=== PATIENT | male | born 1980 | race African-American/Black ===

== ENCOUNTER 2017-04-26 22:36 | Inpatient (IN) | payer MEDICAID ==
[~2017-04-26] VITALS: Ht 190.5 cm; Wt 175.1 kg
--- NOTE | 2017-04-26 23:08 | NUR ---
Pt to room, changed into gown. Pt c/o severe abd pain since last night. Sts not eating due to increased after eating. Pt denies N/V/D/C. Pt sts he had a normal BM approx "36 hrs" ago. Pt resting in position of comfort for self. Awaiting further eval.
[2017-04-26] MEDS ORDERED: MORPHINE SULFATE 2 MG/1 ML DISP.SYRIN IV ONE (23:30)
[2017-04-26] MEDS ORDERED: ONDANSETRON 4 MG/2 ML VIAL IV ONE (23:30)
[2017-04-26] MEDS ORDERED: IV NORMAL SALINE 1000 ML BAG IV ONE (23:30)
[2017-04-26 23:40] LABS: BASOPHILS # (AUTO) 0.1 K/uL (0.0-8.0); BASOPHILS % (AUTO) 1.2 % (0.0-2.0); EOSINOPHILS # (AUTO) 0.2 K/uL (0.0-0.7); EOSINOPHILS % (AUTO) 2.3 % (0.0-7.0); HEMATOCRIT 42.4 % (40-50); HEMOGLOBIN 14.2 G/DL (14.0-18.0); LYMPHOCYTES # (AUTO) 1.8 K/UL (0.8-4.8); LYMPHOCYTES % (AUTO) 21.6 % (20.5-51.5); MEAN CORPUSCULAR HEMOGLOBIN 27.4 UUG (27.0-31.0); MEAN CORPUSCULAR HGB CONC 34 g/dL (32.0-37.0); MEAN CORPUSCULAR VOLUME 81.7 FL (82.0-92.0); MONOCYTES # (AUTO) 0.4 K/UL (0.1-1.30); MONOCYTES % (AUTO) 4.7 % (0.0-11.0); NEUTROPHILS # (AUTO) 5.9 K/UL (1.8-8.9); NEUTROPHILS % (AUTO) 70.2 % (38.5-71.5); PLATELET COUNT (AUTO) 200 K/UL (150-450); RED BLOOD CELL COUNT(AUTO) 5.19 MIL/UL (4.7-6.1); WHITE BLOOD COUNT (AUTO) 8.4 K/UL (4.0-11.2)
[2017-04-26] MEDS ORDERED: ONDANSETRON 4 MG/2 ML VIAL ONE (23:45)
[2017-04-26] MEDS ORDERED: MORPHINE SULFATE 4 MG/1 ML DISP.SYRIN ONE (23:45)
[2017-04-26 23:50] LABS: *BILIRUBIN,URIN NEGATIVE (NEGATIVE); *BLOOD, URINE NEGATIVE (NEGATIVE); *CLARITY,URINE CLEAR (CLEAR); *COLOR,URINE YELLOW (YELLOW); *KETONES,URINE NEGATIVE (NEGATIVE); *PROTEIN,URINE 1+ (NEGATIVE); *UROBILINOGEN,URINE 0.2 E.U./dl (NORMAL); LEUKOCYTE ESTERASE ,URINE NEGATIVE (NEGATIVE); NITRITE, URINE NEGATIVE (NEGATIVE); UGLUCOSE NEGATIVE (NEGATIVE)
[2017-04-26 23:53] LABS: CREATININE 1.6 mg/dL (0.6-1.3); POTASSIUM 4.2 mmol/L (3.5-5.1)
[2017-04-26 23:59] LABS: BILIRUBIN,DIRECT 0.1 mg/dL (0.0-0.2); BILIRUBIN,TOTAL 0.4 mg/dL (0.2-1.0)
[2017-04-27] VITALS (14 sets, daily range): BP systolic 129–162; BP diastolic 75–108
[2017-04-27 00:09] LABS: BACTERIA,URINE NONE SEEN /HPF (NONE SEEN); RBC,URINE NONE SEEN /HPF (0-3); SQUAMOUS EPITHELIAL CELL,UR FEW /HPF (NONE SEEN); WBC,URINE 0-3 /HPF (0-3)
--- NOTE | 2017-04-27 00:19 | NUR ---
Pt sts no change in pain from previous medication. Dr. Lugo notified, awaiting further orders. Fluid bolus cont infusing freely to gravity
--- NOTE | 2017-04-27 00:27 | NUR ---
Pt medicated for continued pain. Will monitor for effects of medication. Pt awaiting CT
[2017-04-27] MEDS ORDERED: HYDROMORPHONE 1 MG/1 ML DISP.SYRIN IV ONE ×2 (00:30→05:45)
[2017-04-27] MEDS ORDERED: HYDROMORPHONE 2 MG/1 ML DISP.SYRIN ONE ×2 (00:34→05:58)
--- NOTE | 2017-04-27 00:39 | NUR ---
pt to CT via robert
--- NOTE | 2017-04-27 00:55 | NUR ---
Pt returned from CT via gurney. Pt sts pain is improving. Pt resting in position of comfort for self, awaiting results.
[2017-04-27] MEDS ORDERED: PIPERACILLIN SODIUM/TAZOBACTAM 3.375 G in IV DEXTROSE 5% 50 ML IV ONE (01:30)
--- NOTE | 2017-04-27 01:43 | NUR ---
Pt to be admitted to the hospital for appendicitis. Dr. Tesfaye pagehattie for admission. Dr. Lugo aware of pt's blood pressure. Awaiting further orders.
[2017-04-27] MEDS ORDERED: LABETALOL HCL 100 MG/20 ML VIAL IV ONE ×4 (02:00→05:30)
[2017-04-27] MEDS ORDERED: IV 1/2NS 1000 ML 1,000 ML IV PRN (02:01)
--- NOTE | 2017-04-27 02:07 | NUR ---
[place] [facility] [place] FOR LATERAL TRANSFER
--- NOTE | 2017-04-27 02:07 | NUR ---
Pt medicated for elevated bp, will monitor for effects of medication. ABT infusion started, will monitor for any adverse reactions. Pt resting in position of comfort for self.
--- NOTE | 2017-04-27 02:10 | NUR ---
Second attempt by Dr. Lugo to speak with Dr. Tesfaye unsuccessful. Dr. Lugo spoke with KAITY Browning for EPIC
[2017-04-27] MEDS ORDERED: LABETALOL HCL 100 MG/20 ML VIAL ONE ×2 (02:11→10:29)
[2017-04-27] MEDS ORDERED: PIPERACILLIN/TAZOBACTAM/D5W 50 ML IV ONE (02:12)
[2017-04-27] MEDS ORDERED: HYDROMORPHONE 1 MG/1 ML DISP.SYRIN IV PRN (02:15)
[2017-04-27] MEDS ORDERED: ONDANSETRON 4 MG/2 ML VIAL IV PRN ×2 (02:15→07:45)
[2017-04-27] MEDS ORDERED: ACETAMINOPHEN 325 MG TABLET PO PRN (02:15)
--- NOTE | 2017-04-27 02:42 | NUR ---
ABT infusion completed, no adverse reactions noted. Pt has no complaints at this time. Admission pending.
--- NOTE | 2017-04-27 02:43 | NUR ---
Cont. waiting for Dr. Tesfaye to call back after third attempt to reach him.
--- NOTE | 2017-04-27 03:20 | NUR ---
Dr. Lugo notified of pt's continued elevated BP. Received verbal order for labetalol 10mg IVP. Pt to be upgraded from med/surg to tele.
--- NOTE | 2017-04-27 03:30 | NUR ---
UNABLE TO GET IN CONTACT WITH DR LIZBETH RESTREPO. CALLED DR POPE TO HELP REACH SURGEON
--- NOTE | 2017-04-27 04:00 | NUR ---
DR LIZBETH RESTREPO HAS NOT RETURN CALL FOR CONSULT. PLACED A 2ND CALL TO DR POPE [phone] IN ORDER TO HELP REACH SURGEON
--- NOTE | 2017-04-27 04:05 | NUR ---
DR POPE CONTACT WITH DR RICHARDS AT THIS TIME
--- NOTE | 2017-04-27 04:10 | NUR ---
DR POPE UNABLE TO HELP AT THIS TIME TO CONTACT SURGEON DUE TO HIM BEING ON INTERNATIONAL FLIGHT. WAS INSTRUCTED TO CALL [facility] TO HELP CONTACT LIZBETH WILCOX
--- NOTE | 2017-04-27 04:12 | NUR ---
PAGED DR RESTREPO,[facility] [place] EXHANGED [phone] FOR CONSULT.WAITING FOR CALL BACK
[2017-04-27] MEDS ORDERED: hydrALAZINE HCL 20 MG/1 ML VIAL IV ONE ×2 (04:15→05:45)
[2017-04-27] MEDS ORDERED: LORAZEPAM 2 MG/1 ML VIAL IV ONE (04:15)
[2017-04-27] MEDS ORDERED: LORAZEPAM 2 MG/1 ML VIAL ONE (04:28)
--- NOTE | 2017-04-27 04:30 | NUR ---
Pt repositioned for comfort. Dr. Lugo notified of pt's blood pressure remaining elevated. Pt medicated with hydralazine IVP, will monitor for effects of medication. Pt remains NSR on monitor. Resp even and unlabored.
[2017-04-27] MEDS ORDERED: hydrALAZINE HCL 20 MG/1 ML VIAL ONE ×3 (04:33→09:52)
--- NOTE | 2017-04-27 04:56 | NUR ---
Dr. Lugo speaking with Dr. Tesfaye at this time
--- NOTE | 2017-04-27 05:20 | NUR ---
Dr. Tesfaye called and received verbal orders, appendectomy scheduled for 0700.
--- NOTE | 2017-04-27 05:35 | NUR ---
Pt c/o severe headache and increased abd pain. Pt's blood pressure increasing as well. Dr. Lugo notified and awaiting further orders.
--- NOTE | 2017-04-27 05:40 | NUR ---
Dr. Lugo spoke with KAITY Browning. Pt upgraded to [facility] admission.
[2017-04-27] MEDS ORDERED: ONDANSETRON 4 MG/2 ML VIAL IV ONE ×2 (05:45→18:34)
--- NOTE | 2017-04-27 05:56 | NUR ---
Pt medicated for discomfort and blood pressure, will monitor for effects of medication. Pt to CT via robert with LORI
[2017-04-27] MEDS ORDERED: ONDANSETRON 4 MG/2 ML VIAL ONE ×2 (05:58→09:13)
[2017-04-27] MEDS ORDERED: hydrALAZINE HCL 20 MG/1 ML VIAL IV PRN ×2 (06:00→12:15)
--- NOTE | 2017-04-27 06:05 | NUR ---
Pt returned from CT via gurney. Pt repositioned for comfort.
--- NOTE | 2017-04-27 06:15 | NUR ---
Pt's blood pressure improved. Pt sts headache is resolved and abd pain slightly improving.
[2017-04-27] MEDS ORDERED: LIDOCAINE HCL 1% 20 ML VIAL ONE ×2 (06:45→07:18)
[2017-04-27] MEDS ORDERED: BUPIVACAINE/EPI PF 0.25% 30 ML VIAL ONE ×2 (06:45→07:16)
--- NOTE | 2017-04-27 06:50 | NUR ---
Surgery staff at bedside to take pt to OR.
--- NOTE | 2017-04-27 07:05 | NUR ---
Report called to LORI Hill. Pt taken to OR.
[2017-04-27] MEDS ORDERED: LIDOCAINE 2% 100 MG/5 ML SYRINGE ONE (07:16)
[2017-04-27 07:23] LABS: MAGNESIUM 1.7 mg/dL (1.8-2.4); PHOSPHOROUS 3.5 mg/dL (2.5-4.9)
[2017-04-27] MEDS ORDERED: METOCLOPRAMIDE HCL 10 MG/2 ML VIAL ONE ×2 (07:36→09:13)
[2017-04-27] MEDS ORDERED: FENTANYL CITRATE 100 MCG/2 ML AMPUL ONE (07:36)
[2017-04-27] MEDS ORDERED: ROCURONIUM BROMIDE 50 MG/5 ML VIAL ONE (07:37)
[2017-04-27] MEDS ORDERED: MIDAZOLAM HCL 2 MG/2 ML VIAL ONE (07:37)
[2017-04-27] MEDS ORDERED: SUCCINYLCHOLINE CHLORIDE 200 MG/10 ML VIAL ONE (07:37)
[2017-04-27] MEDS ORDERED: HYDROCODONE/APAP 5-325MG TABLET PO PRN (07:45)
[2017-04-27] MEDS ORDERED: PANTOPRAZOLE SODIUM 40 MG VIAL IV SCH (09:00)
[2017-04-27] MEDS ORDERED: HYDROMORPHONE 1 MG/1 ML DISP.SYRIN ONE (09:35)
[2017-04-27] MEDS: HYDROMORPHONE 2 MG/1 ML DISP.SYRIN IV PRN ×3 (11:40→21:04)
[2017-04-27] MEDS: PANTOPRAZOLE SODIUM 40 MG TABLET.DR PO SCH (11:42)
[2017-04-27] MEDS: PIPERACILLIN SODIUM/TAZOBACTAM 4.5 G in IV DEXTROSE 5% 50 ML IV SCH ×2 (11:43→19:13)
[2017-04-27] MEDS ORDERED: MAGNESIUM SULFATE/D5W 100 ML IV SCH (13:00)
[2017-04-27] MEDS: IV NS 1000 ML 1,000 ML IV PRN (16:35)
[2017-04-27] MEDS ORDERED: SEVOFLURANE 250 ML BOTTLE IH ONE (18:34)
[2017-04-27] MEDS ORDERED: GLYCOPYRROLATE 0.2 MG/ML VIAL MC ONE (18:34)
[2017-04-27] MEDS ORDERED: NEOSTIGMINE METHYLSULFATE 10 MG/10 ML VIAL IV ONE (18:34)
[2017-04-27] MEDS ORDERED: PROPOFOL 200 MG/20 ML BOTTLE IV ONE (18:34)
[2017-04-27] MEDS ORDERED: IV LACTATED RINGERS SOLUTION 1,000 ML BAG IV ONE (18:34)
[2017-04-27] MEDS ORDERED: METOCLOPRAMIDE HCL 10 MG/2 ML VIAL IV ONE (18:34)
[2017-04-27] MEDS: ENOXAPARIN SODIUM 40 MG/0.4 ML DISP.SYRIN SQ SCH (21:03)
[2017-04-28] VITALS (7 sets, daily range): BP systolic 155–190; BP diastolic 101–120
[2017-04-28] MEDS: HYDROMORPHONE 2 MG/1 ML DISP.SYRIN IV PRN ×5 (01:24→20:54)
[2017-04-28] MEDS: PIPERACILLIN SODIUM/TAZOBACTAM 4.5 G in IV DEXTROSE 5% 50 ML IV SCH ×3 (01:30→17:36)
[2017-04-28] MEDS: ENALAPRILAT DIHYDRATE 1.25 MG/1 ML VIAL IV PRN (03:28)
[2017-04-28] MEDS: PANTOPRAZOLE SODIUM 40 MG TABLET.DR PO SCH (07:40)
[2017-04-28 07:49] LABS: BASOPHILS # (AUTO) 0.1 K/uL (0.0-8.0); BASOPHILS % (AUTO) 0.9 % (0.0-2.0); EOSINOPHILS # (AUTO) 0.1 K/uL (0.0-0.7); EOSINOPHILS % (AUTO) 0.7 % (0.0-7.0); HEMATOCRIT 38.9 % (40-50); HEMOGLOBIN 12.9 G/DL (14.0-18.0); LYMPHOCYTES # (AUTO) 1.4 K/UL (0.8-4.8); LYMPHOCYTES % (AUTO) 15.1 % (20.5-51.5); MEAN CORPUSCULAR HEMOGLOBIN 27.2 UUG (27.0-31.0); MEAN CORPUSCULAR HGB CONC 33 g/dL (32.0-37.0); MEAN CORPUSCULAR VOLUME 81.9 FL (82.0-92.0); MONOCYTES # (AUTO) 0.8 K/UL (0.1-1.30); MONOCYTES % (AUTO) 8.9 % (0.0-11.0); NEUTROPHILS # (AUTO) 6.7 K/UL (1.8-8.9); NEUTROPHILS % (AUTO) 74.4 % (38.5-71.5); PLATELET COUNT (AUTO) 186 K/UL (150-450); RED BLOOD CELL COUNT(AUTO) 4.76 MIL/UL (4.7-6.1); WHITE BLOOD COUNT (AUTO) 9.1 K/UL (4.0-11.2)
[2017-04-28 07:55] LABS: CREATININE 1.3 mg/dL (0.6-1.3); MAGNESIUM 1.7 mg/dL (1.8-2.4); POTASSIUM 3.9 mmol/L (3.5-5.1)
--- NOTE | 2017-04-28 08:10 | NUR ---
Bedside report given to jeannie Ybarra. Patient transfer to bed 206 ambulatory, [id number]. with vital signs stable with no complains of pain.
[2017-04-28] MEDS: IV NS 1000 ML 1,000 ML IV PRN (09:26)
--- NOTE | 2017-04-28 10:00 | NUR ---
IV LINE DISLODGED TRIED TO RESTART WITH THE HELP OF ER STAFF. UNABLE TO RESTART DUE TO POOR VEIN
--- NOTE | 2017-04-28 14:00 | NUR ---
DR MC MADE ARE OF BP 180/114 BUT ASYMPTOMATIC GAVE ORDER FOR P[O HYDRALAZINE X1 WHILE WAITING FOR IV LINE, ST 110 ON MONITOR NO SIGNS OF DISTRESS
[2017-04-28] MEDS ORDERED: hydrALAZINE HCL 50 MG TABLET PO STA (14:07)
[2017-04-28] MEDS: MAGNESIUM SULFATE/D5W 100 ML IV SCH ×2 (15:21→16:45)
--- NOTE | 2017-04-28 15:23 | NUR ---
MIDLINE INSERT RIGHT UPPER ARM BY DR MC, PATIENT TOLERATED WELL
--- NOTE | 2017-04-28 17:00 | NUR ---
SEEN BY DR KELLY MADE AWARE OF HIGH BP IN SPITE OF HYDRALAZINE WITH ORDERS. SEE NOTES
[2017-04-28] MEDS: CARVEDILOL 6.25 MG TABLET PO SCH ×2 (17:37→17:53)
--- NOTE | 2017-04-28 17:54 | NUR ---
1800 DOSE OF COREG GIVEN AT 1737
--- NOTE | 2017-04-28 19:10 | NUR ---
Bedside reporting with LORI Hill. Patient awake on bed during initial rounds. Denies any pain/discomforts at this time. Ambulatory to the BR with minimal assist. IVF infusing well on CORA mid line. Continue care as planned.
[2017-04-28] MEDS ORDERED: LORAZEPAM 2 MG/1 ML VIAL IV PRN (20:45)
[2017-04-28] MEDS: ENOXAPARIN SODIUM 40 MG/0.4 ML DISP.SYRIN SQ SCH (20:50)
--- NOTE | 2017-04-28 20:50 | NUR ---
BP 181/120 Hydralazine given as needed for HTN.Pt asymptomatic, denies any s/s of hypertension. Ambulating in the hallways and complaining of pain on puncture sites. Medicated as needed and as opdered. Continue to monitor.
[2017-04-28] MEDS: hydrALAZINE HCL 20 MG/1 ML VIAL IV PRN (20:55)
[2017-04-29] VITALS (7 sets, daily range): BP systolic 152–189; BP diastolic 115–126
[2017-04-29] MEDS: PIPERACILLIN SODIUM/TAZOBACTAM 4.5 G in IV DEXTROSE 5% 50 ML IV SCH ×3 (01:25→17:30)
--- NOTE | 2017-04-29 01:40 | NUR ---
Seen ambulating in the hallways with steady gait. No SOB/SOBOE presented
[2017-04-29] MEDS: HYDROMORPHONE 2 MG/1 ML DISP.SYRIN IV PRN ×3 (01:56→14:50)
--- NOTE | 2017-04-29 01:56 | NUR ---
Medicated fpr pain as needed and as ordered. Will monitor.
--- NOTE | 2017-04-29 05:36 | NUR ---
Bp 156/125. Denies any pain/discomforts. Asymptomatic, Denies s/s of hypertension. Requested Ativan this time, given. Will monitor.
[2017-04-29] MEDS: PANTOPRAZOLE SODIUM 40 MG TABLET.DR PO SCH (06:11)
[2017-04-29 06:35] LABS: CREATININE 1.3 mg/dL (0.6-1.3); PHOSPHOROUS 2.3 mg/dL (2.5-4.9); POTASSIUM 3.8 mmol/L (3.5-5.1)
[2017-04-29 06:44] LABS: BASOPHILS % (AUTO) 0.5 % (0.0-2.0); EOSINOPHILS # (AUTO) 0.1 K/uL (0.0-0.7); EOSINOPHILS % (AUTO) 1.6 % (0.0-7.0); HEMATOCRIT 40.1 % (40-50); HEMOGLOBIN 13.2 G/DL (14.0-18.0); LYMPHOCYTES # (AUTO) 1.4 K/UL (0.8-4.8); LYMPHOCYTES % (AUTO) 17.2 % (20.5-51.5); MEAN CORPUSCULAR HEMOGLOBIN 26.7 UUG (27.0-31.0); MEAN CORPUSCULAR HGB CONC 33 g/dL (32.0-37.0); MONOCYTES # (AUTO) 0.8 K/UL (0.1-1.30); MONOCYTES % (AUTO) 9.8 % (0.0-11.0); NEUTROPHILS # (AUTO) 5.7 K/UL (1.8-8.9); NEUTROPHILS % (AUTO) 70.9 % (38.5-71.5); PLATELET COUNT (AUTO) 201 K/UL (150-450); RED BLOOD CELL COUNT(AUTO) 4.95 MIL/UL (4.7-6.1)
--- NOTE | 2017-04-29 06:49 | NUR ---
Bedside reporting with LORI Hill
--- NOTE | 2017-04-29 07:25 | NUR ---
RESTING IN BED WITH EYS CLOSED NO SIGNS OF DISTRESS OR C/O PAIN, SR ON MONITOR. CONTINUE WITH [facility] MONITORING
[2017-04-29] MEDS: IV NS 1000 ML 1,000 ML IV PRN (09:11)
[2017-04-29] MEDS: CARVEDILOL 6.25 MG TABLET PO SCH ×2 (09:11→17:29)
[2017-04-29] MEDS: ENALAPRILAT DIHYDRATE 1.25 MG/1 ML VIAL IV PRN (09:23)
[2017-04-29] MEDS ORDERED: hydrALAZINE HCL 20 MG/1 ML VIAL IV PRN (12:15)
--- NOTE | 2017-04-29 13:01 | NUR ---
AMBULATED HALF-WAY ALONG THE HALLWAY AND COMPLAINED OF SLIGHT DIZZINESS BP 170/126, HR 100/MIN ON MONITOR DENIES CHEST PAIN OR SOB. PLACED BACK IN BED OBSERVE
[2017-04-29] MEDS: hydrALAZINE HCL 20 MG/1 ML VIAL IV PRN (13:20)
[2017-04-29] MEDS ORDERED: CARV6.252 PO (15:56)
[2017-04-29] MEDS ORDERED: LOSA50TA21 PO (15:56)
[2017-04-29] MEDS ORDERED: NIFE90TA2 PO (15:56)
--- NOTE | 2017-04-29 17:45 | NUR ---
SEEN BY DR MC WITH ORDER FOR DISCHARGE BACK TO [facility], Addendum: 04/29/17 at 1747 by MARY ALICE LOCK RN PATIENT TO BE DISCHARGED HOME NOT [facility]
== END 2017-04-29 18:35 | disposition home or self-care (01) | DRG 225 ==
LOC: ER 22:37 → TELE-TD 04-27 06:57 → CCU 04-27 10:27 → TELE-TD 04-28 08:26 → MED 04-29 16:47
PROVIDERS: ADMIT Nurse Practitioner Acute Care; ATTEND Nurse Practitioner Acute Care
PROC: 0DTJ4ZZ Resection of Appendix, Percutaneous Endoscopic Approach (ICD-10-PCS; principal; 2017-04-27 07:15)
PROC: 05H533Z Insertion of Infusion Device into Right Subclavian Vein, Percutaneous Approach (ICD-10-PCS; 2017-04-28)
DX: K35.80 Unspecified acute appendicitis (principal); N17.0 Acute kidney failure with tubular necrosis; E43 Unspecified severe protein-calorie malnutrition; Z68.42 Body mass index [BMI] 45.0-49.9, adult; K38.1 Appendicular concretions; E66.01 Morbid (severe) obesity due to excess calories; E83.42 Hypomagnesemia; G47.33 Obstructive sleep apnea (adult) (pediatric); I16.0 Hypertensive urgency; F12.90 Cannabis use, unspecified, uncomplicated; G89.29 Other chronic pain; M54.9 Dorsalgia, unspecified
CPT/HCPCS: 36415; 70030-TC; 70450; 71010; 83690; 83735; 84100; 85025; 85730; 93005; A4663; J0330; J0360; J1170; J1650; J2001; J2060; J2250; J2270; J2405; J2543; J2710; J2765; J3010; J3475; J3490; J7030; J7060; J7120